=== PATIENT | male | born 1970 | race Caucasian/White ===

== ENCOUNTER 2016-12-29 00:32 | Emergency (ER) | payer OTHER ==
[2016-12-29 00:35] VITALS: BP 122/84; PULSE 84; RESP 16; TEMP 98.4; O2SAT 96
[2016-12-29] MEDS ORDERED: SODIUM CHLORIDE 0.9% FLUSH 10 ML FLUSH IVF PRN (01:15)
[2016-12-29] MEDS ORDERED: SODIUM CHLOR 0.9% 1000 ML INJ 1,000 ML IV ONE (01:15)
[2016-12-29 01:23] VITALS: BP_SYST 115; BP_SYST 120; BP_DIAS 60; BP_DIAS 64; BP_DIAS 67
[2016-12-29 01:35] LABS: AUTOMATED NEUTROPHIL # 6.8 TH/MM3 (1.8-7.7); BASOPHIL # 0.1 TH/MM3 (0-0.2); BASOPHIL % 0.7 % (0.0-2.0); EOSINOPHIL # 0.1 TH/MM3 (0-0.4); EOSINOPHIL % 0.8 % (0.0-4.0); HEMO FLAGS DIFF FINAL; LYMPH % 38.8 % (9.0-44.0); MEAN CELL VOLUME 85.9 FL (80.0-100.0); MEAN CORPUSCULAR HEMOGLOBIN 29.8 PG (27.0-34.0); MEAN CORPUSCULAR HGB CONC 34.7 % (32.0-36.0); MONO % 7.1 % (0.0-8.0); NEUT % 52.6 % (16.0-70.0); PLATELET COUNT 291 TH/MM3 (150-450); RED BLOOD COUNT 5.01 MIL/MM3 (4.50-5.90); RED CELL DISTRIBUTION WIDTH 13.3 % (11.6-17.2); WHITE BLOOD COUNT 12.9 TH/MM3 (4.0-11.0)
--- NOTE | 2016-12-29 01:35 | PD ---
HPI Chief Complaint: Syncope/Near-Syncope Time Seen by Provider: 01:08 Travel History International Travel<30 days: No Contact w/Intl Traveler<30days: No Traveled to known affect area: No History of Present Illness HPI The patient is a 46-year-old male who presents emergency Department after syncopal episode of his condo. The patient is currently visiting from [place]. The patient was sitting in a chair when he drank some cold milk and stated that the cold milk "went down the wrong tube ". The patient states that he had a sudden onset of pain secondary to the cold milk, remembers leaning over secondary to the pain, and then had a syncopal episode according to the family. The family states he did not fall out of the chair and awakened quickly. The patient thought he had simply fallen asleep. The patient states that his symptoms were secondary to drinking cold milk and having a go down his windpipe. He denies any chest pain, shortness of breath, nausea, vomiting, or history of arrhythmias. The patient is currently asymptomatic. 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 The patient's symptoms are mild to moderate, exacerbated after drinking cold milk, and have currently alleviated. PFSH Past Medical History Hypertension: Yes Tetanus Vaccination: Unknown Past Surgical History Eye Surgery: Yes (lasik) Social History Alcohol Use: No Tobacco Use: No Substance Use: No Allergies-Medications (Allergen,Severity, Reaction): Coded Allergies: No Known Allergies (Unverified , 12/29/16) Review of Systems Except as stated in HPI: all other systems reviewed are Neg HENT: No: Lightheadedness Cardiovascular: Positive: Chest Pain or Discomfort (after cold milk when down his windpipe), Syncope, No: Palpitations, Irregular Rhythm, Tachycardia Respiratory: No: Shortness of Breath Gastrointestinal: No: Nausea, Vomiting, Abdominal Pain Neurologic: Positive: Syncope, No: Focal Abnormalities, Paresthesia, Seizures , Sensory Disturbance Physical Exam Narrative GENERAL: Awake, alert, very pleasant 46-year-old male who appears his stated age and is in no acute respiratory distress. SKIN: Focused skin assessment warm/dry. HEAD: Atraumatic. Normocephalic. EYES: Pupils equal and round. No scleral icterus. No injection or drainage. ENT: No nasal bleeding or discharge. Mucous membranes pink and moist. NECK: Trachea midline. No JVD. CARDIOVASCULAR: Regular rate and rhythm. No murmur appreciated. RESPIRATORY: No accessory muscle use. Clear to auscultation. Breath sounds equal bilaterally. GASTROINTESTINAL: Abdomen soft, non-tender, nondistended. No rebound tenderness. MUSCULOSKELETAL: No obvious deformities. No clubbing. No cyanosis. No edema. NEUROLOGICAL: Awake and alert. No obvious cranial nerve deficits. Motor grossly within normal limits. Normal speech. Nonfocal. Oriented 4. Follows commands without difficulty. PSYCHIATRIC: Appropriate mood and affect; insight and judgment normal. Data Data Last Documented VS Vital Signs Date Time Temp Pulse Resp B/P Pulse Ox O2 Delivery O2 Flow Rate FiO2 12/29/16 01:23 85 115/60 85 115/64 90 120/67 12/29/16 00:35 98.4 16 96 Room Air Orders Electrocardiogram (12/29/16 01:15) Complete Blood Count With Diff (12/29/16 01:15) Comprehensive Metabolic Panel (12/29/16 01:15) Magnesium (Mg) (12/29/16 01:15) Ecg Monitoring (12/29/16 01:15) Iv Access Insert/Monitor (12/29/16 01:15) Oximetry (12/29/16 01:15) Sodium Chloride 0.9% Flush (Ns Flush) (12/29/16 01:15) Sodium Chlor 0.9% 1000 Ml Inj (Ns 1000 M (12/29/16 01:15) Orthostatic Vital Signs (12/29/16 01:15) Labs Laboratory Tests Test 12/29/16 01:20 White Blood Count 12.9 TH/MM3 Red Blood Count 5.01 MIL/MM3 Hemoglobin 14.9 GM/DL Hematocrit 43.0 % Mean Corpuscular Volume 85.9 FL Mean Corpuscular Hemoglobin 29.8 PG Mean Corpuscular Hemoglobin 34.7 % Concent Red Cell Distribution Width 13.3 % Platelet Count 291 TH/MM3 Mean Platelet Volume 8.1 FL Neutrophils (%) (Auto) 52.6 % Lymphocytes (%) (Auto) 38.8 % Monocytes (%) (Auto) 7.1 % Eosinophils (%) (Auto) 0.8 % Basophils (%) (Auto) 0.7 % Neutrophils # (Auto) 6.8 TH/MM3 Lymphocytes # (Auto) 5.0 TH/MM3 Monocytes # (Auto) 0.9 TH/MM3 Eosinophils # (Auto) 0.1 TH/MM3 Basophils # (Auto) 0.1 TH/MM3 CBC Comment DIFF FINAL Differential Comment Sodium Level 139 MEQ/L Potassium Level 3.6 MEQ/L Chloride Level 104 MEQ/L Carbon Dioxide Level 27.4 MEQ/L Anion Gap 8 MEQ/L Blood Urea Nitrogen 20 MG/DL Creatinine 1.28 MG/DL Estimat Glomerular Filtration 60 ML/MIN Rate Random Glucose 127 MG/DL Calcium Level 9.6 MG/DL Magnesium Level 2.1 MG/DL Total Bilirubin 0.6 MG/DL Aspartate Amino Transf 29 U/L (AST/SGOT) Alanine Aminotransferase 86 U/L (ALT/SGPT) Alkaline Phosphatase 81 U/L Total Protein 7.8 GM/DL Albumin 3.9 GM/DL [facility] Medical Decision Making Medical Screen Exam Complete: Yes Emergency Medical Condition: Yes Medical Record Reviewed: Yes Interpretation(s) EKG reveals normal sinus rhythm with a rate 85. Inverted T waves noted in lead 3. Laboratory Tests Test 12/29/16 01:20 White Blood Count 12.9 TH/MM3 Red Blood Count 5.01 MIL/MM3 Hemoglobin 14.9 GM/DL Hematocrit 43.0 % Mean Corpuscular Volume 85.9 FL Mean Corpuscular Hemoglobin 29.8 PG Mean Corpuscular Hemoglobin 34.7 % Concent Red Cell Distribution Width 13.3 % Platelet Count 291 TH/MM3 Mean Platelet Volume 8.1 FL Neutrophils (%) (Auto) 52.6 % Lymphocytes (%) (Auto) 38.8 % Monocytes (%) (Auto) 7.1 % Eosinophils (%) (Auto) 0.8 % Basophils (%) (Auto) 0.7 % Neutrophils # (Auto) 6.8 TH/MM3 Lymphocytes # (Auto) 5.0 TH/MM3 Monocytes # (Auto) 0.9 TH/MM3 Eosinophils # (Auto) 0.1 TH/MM3 Basophils # (Auto) 0.1 TH/MM3 CBC Comment DIFF FINAL Differential Comment Sodium Level 139 MEQ/L Potassium Level 3.6 MEQ/L Chloride Level 104 MEQ/L Carbon Dioxide Level 27.4 MEQ/L Anion Gap 8 MEQ/L Blood Urea Nitrogen 20 MG/DL Creatinine 1.28 MG/DL Estimat Glomerular Filtration 60 ML/MIN Rate Random Glucose 127 MG/DL Calcium Level 9.6 MG/DL Magnesium Level 2.1 MG/DL Total Bilirubin 0.6 MG/DL Aspartate Amino Transf 29 U/L (AST/SGOT) Alanine Aminotransferase 86 U/L (ALT/SGPT) Alkaline Phosphatase 81 U/L Total Protein 7.8 GM/DL Albumin 3.9 GM/DL Differential Diagnosis Differential diagnosis includes vasovagal syncope, arrhythmia, aortic stenosis, neurogenic syncope, dehydration, orthostatic hypotension. Narrative Course IV was established, labs were drawn and sent, and the patient was placed on cardiac telemetry monitoring and continuous pulse oximetry monitoring. EKG was ordered and interpreted. Orthostatic vital signs were obtained. The patient was a tree thinner 1 L of IV fluids and monitored on telemetry monitoring. Labs are essentially unremarkable. Orthostatic vital signs are within normal limits. There is no evidence of ectopy or arrhythmia on telemetry monitoring. The patient's history is consistent with probable vasovagal syncope. The patient is advised to follow-up with his primary physician and return if symptoms worsen or progress. Diagnosis Primary Impression: Vasovagal syncope Patient Instructions: General Instructions Additional Instructions: Follow-up with your primary physician. Return if symptoms worsen or progress. Please provide the patient a copy of his EKG and labs at discharge. Return if symptoms worsen or progress. Med/Other Pt SpecificInfo: No Change to Meds Disposition: 01 DISCHARGE HOME Condition: Stable Owen Kovacs MD Dec 29, 2016 01:35 Owen Kovacs MD Dec 29, 2016 01:35
[2016-12-29 01:48] LABS: ANION GAP 8 MEQ/L (5-15); AST (GOT) 29 U/L (15-37); BICARBONATE 27.4 MEQ/L (21.0-32.0); BLOOD UREA NITROGEN 20 MG/DL (7-18); CHLORIDE 104 MEQ/L (98-107); GLOMERULAR FILTRATION RATE 60 ML/MIN (>89); MAGNESIUM 2.1 MG/DL (1.5-2.5); POTASSIUM 3.6 MEQ/L (3.5-5.1); SODIUM (NA) 139 MEQ/L (136-145)
[2016-12-29 01:51] LABS: ALKALINE PHOSPHATASE 81 U/L (45-117); ALT (GPT) 86 U/L (12-78); TOTAL BILIRUBIN ADULT 0.6 MG/DL (0.2-1.0)
[2016-12-29 03:38] VITALS: BP 120/74
--- NOTE | 2016-12-29 12:46 | EKG ---
Date Performed: 12/29/2016 Time Performed: 01:04:09 PTAGE: 46 years EKG: Sinus rhythm NONSPECIFIC T-WAVE ABNORMALITY BORDERLINE ECG INTERPRETATION BASED ON A DEFAULT AGE OF 38 YEARS NO PREVIOUS TRACING DOCTOR: [place] Interpretating Date/Time 12/29/2016 12:43:57
== END 2016-12-29 03:39 | disposition home or self-care (01) ==
LOC: NEPE 00:32
DX: R55 Syncope and collapse (principal); R07.9 Chest pain, unspecified; I10 Essential (primary) hypertension; R94.31 Abnormal electrocardiogram [ECG] [EKG]
CPT/HCPCS: 80053; 83735; 85025; 93005; 99284; J7030